=== PATIENT | male | born 1940 | race Caucasian/White ===

== ENCOUNTER 2018-05-10 10:04 | Day surgery (SDC) | payer MEDICARE, BC ==
[2018-05-10 12:18] LABS: WHITE BLOOD COUNT 8.7 10^3/ul (4.8-10.8)
[2018-05-10 12:18] LABS: ADD MAN DIFF? NO; BASOPHIL # 0.1 10^3/ul (0.0-0.1); BASOPHILS % 0.6 % (0.0-2.0); EOSINOPHILS # 0.1 10^3/ul (0.0-0.5); EOSINOPHILS % 1.4 % (0.0-7.0); HEMATOCRIT 37.3 % (42.0-52.0); HEMOGLOBIN 12.3 g/dl (14.0-18.0); LYMPHOCYTES # 1.4 10^3/ul (0.8-2.9); LYMPHOCYTES % 16.3 % (15.0-51.0); MEAN CORPUSCULAR HEMOGLOBIN 30.4 pg (29.0-33.0); MEAN CORPUSCULAR VOLUME 92.1 fl (82.0-101.0); MEAN PLATELET VOLUME 10.3 fl (7.4-10.4); MONOCYTE # 0.8 10^3/ul (0.3-0.9); MONOCYTES % 9.1 % (0.0-11.0); NEUTROPHIL # 6.2 10^3/ul (1.6-7.5); NEUTROPHILS % 71.3 % (39.0-77.0); PLATELET COUNT 303 10^3/UL (140-415); RED BLOOD COUNT 4.05 10^6/ul (4.70-6.10); RED CELL DISTRIBUTION WIDTH 13.5 % (11.5-14.5)
[2018-05-10 12:22] LABS: INR 1.33; PARTIAL THROMBOPLASTIN TIME 34.5 Sec (23.0-35.0); PROTIME 16.6 Sec (11.9-14.9); PT RATIO 1.3
[2018-05-10 12:29] LABS: ANION GAP 14 (5-13); CALCIUM 9.9 mg/dl (8.4-10.2); CARBON DIOXIDE 24 mmol/L (21-31); CHLORIDE 105 mmol/L (97-110); CREATININE 1.03 mg/dl (0.61-1.24); GLUCOSE 102 mg/dl (70-220); POTASSIUM 4.3 mmol/L (3.5-5.1); SODIUM 143 mmol/L (135-144)
[2018-05-10 12:33] LABS: BLOOD UREA NITROGEN 25 mg/dl (7-20)
[2018-05-10] MEDS ORDERED: ETOMIDATE 20 MG INJ ×2 (12:35→12:36)
[2018-05-10] MEDS ORDERED: PROPOFOL 100 ML (12:36)
== END 2018-05-10 15:40 | disposition home or self-care (01) ==
LOC: SDS 10:04
DX: I48.91 Unspecified atrial fibrillation (principal); I44.0 Atrioventricular block, first degree
CPT/HCPCS: 71045; 80048; 85025; 85610; 85730; 92960; 93005; 93312; 93320; 93325